=== PATIENT | male | born 1945 | race Caucasian/White ===

== ENCOUNTER 2021-03-17 13:50 | Emergency (ER) | payer MEDICARE, OTHER ==
[~2021-03-17] VITALS: Ht 175.3 cm; Wt 104.0 kg
[2021-03-17] MEDS ORDERED: KEFLEX500 MG PO (14:31)
[2021-03-17] MEDS ORDERED: OMEPRAZOLE20 MG PO (14:52)
[2021-03-17] MEDS ORDERED: HYDROCHLOROT25 MG PO (14:53)
[2021-03-17] MEDS ORDERED: MULTI VIT PO (14:53)
[2021-03-17] MEDS ORDERED: FISH OIL1000 MG PO (14:53)
[2021-03-17 15:10] VITALS: BP 137/63
== END 2021-03-17 15:10 | disposition home or self-care (01) ==
LOC: ED 13:50
PROC: 0HQGXZZ Repair Left Hand Skin, External Approach (ICD-10-PCS; principal; 2021-03-17)
DX: S61.412A Laceration without foreign body of left hand, initial encounter (principal); W27.8XXA Contact with other nonpowered hand tool, initial encounter; Y93.89 Activity, other specified; Y92.009 Unspecified place in unspecified non-institutional (private) residence as the place of occurrence of the external cause